=== PATIENT | male | born 1985 | race Two or more races ===

== ENCOUNTER 2016-11-06 20:28 | Emergency (ER) | payer OTHER ==
[~2016-11-06] VITALS: Ht 180.3 cm; Wt 83.9 kg
[2016-11-06 20:32] VITALS: BP 167/94
[2016-11-06 20:54] LABS: KETONES,URINE Negative (NEGATIVE); LEUKOCYTE ESTERASE ,URINE Negative (NEGATIVE)
[2016-11-06 20:58] LABS: ADD UA MICROSCOPIC YES
[2016-11-06 21:07] LABS: ADD URINE CULTURE NO; RBC,URINE 2-3/HPF /HPF (0-2); WBC,URINE 0-2 /HPF (0-3)
[2016-11-06 21:08] LABS: MUCUS,URINE Few /LPF (None Seen)
[2016-11-06 21:34] LABS: CALCIUM, SERUM 8.4 mg/dL (8.5-10.1); POTASSIUM 3.7 mmol/L (3.5-5.1)
[2016-11-06 21:41] LABS: ALBUMIN 3.8 g/dL (3.4-5.0); BILIRUBIN,TOTAL 0.2 mg/dL (0.2-1.0); TOTAL PROTEIN, SERUM 7.2 g/dL (6.4-8.2)
== END 2016-11-06 22:19 | disposition home or self-care (01) ==
LOC: ER 20:33
DX: R35.0 Frequency of micturition (principal); R31.9 Hematuria, unspecified
CPT/HCPCS: 36415; 80053-TC; 81000-TC; 82962-TC; 87491; 87591; A4606; Z7610